=== PATIENT | male | born 1940 | race Caucasian/White ===

== ENCOUNTER 2017-01-10 06:28 | Day surgery (SDC) | payer OTHER ==
--- NOTE | 2017-01-06 15:50 | HP ---
DATE OF OPERATION: 01/10/2017 PREOPERATIVE DIAGNOSIS: Right inguinal hernia. BRIEF HISTORY: This is a 76-year-old gentleman who is status post right knee replacement. The patient states he was working extremely heavily after his knee replacement during rehab and developed pain in the right groin, followed by a bulge. He has had the bulge for approximately 1-1/2 months now. The patient states the bulge has gotten more painful and he now wishes to have this hernia repaired. He has had no nausea, vomiting or change in bowel habits. PAST MEDICAL HISTORY: Significant for heart disease, hypertension. He denies diabetes. PAST SURGICAL HISTORY: The patient has had knee replacement, pacemaker placement and cataract surgery. MEDICATIONS: Carvedilol, amlodipine, benazepril and triamterene. ALLERGIES: None. SOCIAL HISTORY: The patient is retired. He does not smoke or drink. PHYSICAL EXAMINATION: Lungs: Clear. Heart: Regular rhythm. Abdomen: Soft, nontender, nondistended. He has a large right inguinal hernia. The hernia is reducible with the patient in the supine position. The right scrotum and testicle are within normal limits. On the left side, there is no obvious hernia but a fair amount of laxity and a small occult hernia cannot be entirely ruled out. The left scrotum and testicle are within normal limits. IMPRESSION/PLAN: Right inguinal hernia. This is a 76-year-old gentleman who is becoming more symptomatic from a right inguinal hernia. At this point, I would recommend laparoscopic repair of his right inguinal hernia. At the time of laparoscopy, the left side should be examined as well. If a hernia is identified, it will be repaired in the same setting. If no hernia is seen, a piece of mesh will be floor for reinforcement. The indications, alternatives and complications have been discussed. The patient is more likely to develop a postoperative seroma which may or may not resolve. This was explained to him and to his at length. They understand and want to proceed. MARÍA GOLDSMITH M.D. [facility]/[id number]
[2017-01-08 11:34] VITALS: BMI 24.2
[2017-01-10] MEDS ORDERED: MIDAZOLAM HCL 2 MG/2 ML SINGLE DOSE VIAL ONE ×2 (06:32→07:34)
[2017-01-10] MEDS ORDERED: DEXAMETHASONE SOD PHOSPHATE/PF 10 MG/ML SDV ONE (06:32)
[2017-01-10] MEDS ORDERED: BUPIVACAINE HCL/PF (5 MG/ML) 30 ML VIAL IJ ONE ×2 (06:33→07:29)
[2017-01-10] MEDS ORDERED: TAMSULOSIN HCL 0.4 MG CAP.ER.24H (FP) ONE (06:58)
[2017-01-10] MEDS ORDERED: ROCURONIUM BROMIDE 50 MG/5 ML VIAL ONE ×2 (08:05→09:01)
[2017-01-10] MEDS ORDERED: PROPOFOL 20 ML ONE ×3 (08:05→09:01)
[2017-01-10] MEDS ORDERED: SUCCINYLCHOLINE CHLORIDE 200 MG/10 ML VIAL ONE (08:06)
[2017-01-10] MEDS ORDERED: LIDOCAINE HCL 2% 100 MG/5 ML DISP.SYRIN ONE (08:10)
[2017-01-10] MEDS ORDERED: ceFAZolin SODIUM 1 GM VIAL ONE ×2 (08:15→10:15)
[2017-01-10] MEDS ORDERED: ONDANSETRON 4 MG/2 ML VIAL ONE ×3 (08:47→10:18)
[2017-01-10] MEDS ORDERED: DEXAMETHASONE SOD PHOSPHATE 4 MG/1 ML VIAL ONE ×2 (08:47→10:18)
[2017-01-10] MEDS ORDERED: NEOSTIGMINE METHYLSULFATE 0.5 MG/ML - 10 ML MDV ONE ×2 (09:04→11:12)
[2017-01-10] MEDS ORDERED: GLYCOPYRROLATE 0.2 MG/1 ML VIAL ONE ×3 (09:04→11:26)
[2017-01-10] MEDS ORDERED: ONDANSETRON 4 MG/2 ML VIAL IVPUSH PRN (09:52)
[2017-01-10] MEDS ORDERED: oxyCODONE HCL 5 MG TABLET PO PRN (09:52)
[2017-01-10] MEDS ORDERED: LACTATED RINGERS SOLUTION 1,000 ML IV SCH (10:00)
[2017-01-10] MEDS ORDERED: HYDROmorphone HCL/PF 1 MG/ML VIAL (FOR PYXIS CHARGING ONLY) ONE (10:23)
[2017-01-10 10:37] VITALS: TEMP 98
[2017-01-10] MEDS ORDERED: oxyCODONE HCL 5 MG TABLET ONE (10:54)
[2017-01-10 10:56] VITALS: PULSE 60
--- NOTE | 2017-01-10 11:04 | OP ---
DATE OF OPERATION: 01/10/2017 PREOPERATIVE DIAGNOSIS: Large right inguinal hernia. POSTOPERATIVE DIAGNOSES: Large right inguinal hernia, left inguinal hernia. PROCEDURE: Bilateral laparoscopic inguinal herniorrhaphy with mesh. SURGEON: Juan Alcaraz MD MASTER FISHER: Lawrence Rodrigues MD ANESTHESIA: Monica Hughes MD (general). ESTIMATED BLOOD LOSS: Minimal. SPECIMEN: None. INDICATION FOR PROCEDURE: This is a 76-year-old gentleman who has had pain and a bulge in his right groin for the past month, month and a half now. Patient wished to have his hernia repaired at this time. Patient identified and appropriately positioned on the operating room table. After placement of general anesthesia, the abdomen prepped and draped in the usual sterile fashion with ChloraPrep. An infraumbilical incision was made, deepened through subcutaneous tissue. The fascia was divided sharply on the right, the rectus muscle split. Under direct vision, dissector balloon followed by a structural balloon placed. Also under direct vision, a suprapubic 11-mm port placed. Following structures on the right side identified: Pubic tubercle, Gary ligament, inferior epigastric vessel, spermatic cord, and lateral abdominal wall. During this dissection, patient was noted to have no direct component. There was some attenuation on the direct inguinal floor. He had a large indirect inguinal hernia with a very large cord lipoma. Both were reduced back in the preperitoneal space with blunt dissection. A 4-1/2 x 6 piece of Versatex mesh was keyholed, placed through the suprapubic port site. The mesh wrapped around the cord structures laterally to reconstruct the internal ring. Laterally mesh anchored to the anterior abdominal wall and lateral abdominal wall. Medially mesh anchored to the anterior abdominal wall, pubic tubercle, and Gary ligament. Upon completion of the right side, similar structures on the left side identified. On the left side, he had no direct component as well. Again, attenuation on the direct inguinal floor and a large indirect inguinal hernia. There was a moderate amount of cord lipoma associated with this as well. Both reduced back in the preperitoneal space. His left side mirrored his right side essentially. Another 4-1/2 x 6 piece of Versatex mesh was keyholed, placed through the suprapubic port site. The mesh wrapped around the cord structures laterally to reconstruct the internal ring. Laterally mesh anchored to the anterior abdominal wall and lateral abdominal wall. Medially mesh well overlapped in the midline, anchored to the anterior abdominal wall, pubic tubercle, and Gary ligament. All anterior abdominal wall, lateral abdominal wall anchors placed under direct vision without complication. The mesh used was Versatex. The anchoring system was ReliaTack. Ports removed. Port sites hemostatic. The fascia at both port sites reapproximated with interrupted 0 Vicryl suture. All skin closed with 4-0 subcuticular Biosyn followed by Dermabond. At the end of the case, sponge and needle counts correct. ATTESTATION: Brief operative note handwritten on the preprinted form. [facility] queried prior to giving any narcotics. Av MINER [id number] cc: Dr. Washington
[2017-01-10 11:52] VITALS: BP 128/79
== END 2017-01-10 11:55 | disposition home or self-care (01) ==
LOC: FASU 06:28
PROVIDERS: ATTEND Surgery
PROC: 0YUA4JZ Supplement Bilateral Inguinal Region with Synthetic Substitute, Percutaneous Endoscopic Approach (ICD-10-PCS; principal; 2017-01-10 08:26)
DX: K40.20 Bilateral inguinal hernia, without obstruction or gangrene, not specified as recurrent (principal)